=== PATIENT | male | born 1990 | race Native Hawaiian/Other Pacific Islander ===

== ENCOUNTER 2016-06-09 16:55 | Emergency (ER) | payer OTHER ==
[~2016-06-09] VITALS: Ht 188 cm; Wt 113.4 kg
[2016-06-09 17:58] LABS: PLATELET COUNT 327 K/uL (142-355)
[2016-06-09 17:59] LABS: POTASSIUM 3.7 mmol/L (3.6-5.2); SODIUM 140 mmol/L (136-145)
[2016-06-09 20:10] VITALS: BP 123/78; TEMP 98.5
== END 2016-06-09 20:12 | disposition home or self-care (01) ==
LOC: ED 16:55
PROVIDERS: Specialist
DX: N20.1 Calculus of ureter (principal)
CPT/HCPCS: 36415; 80048; 81000; 85027; 96361; 96374; 96375; 96376; 99284; J1885; J2175; J2405